=== PATIENT | female | born 1970 | race Caucasian/White ===

== ENCOUNTER 2021-12-13 21:15 | Emergency (ER) | payer OTHER ==
[2021-12-13] MEDS ORDERED: Acetaminophen/HYDROcodone 325-10 MG Tab PO ONE (21:16)
[2021-12-13] MEDS ORDERED: Sodium Chloride 0.9% 1,000 ML IV ONE (21:27)
[2021-12-13] MEDS ORDERED: Ondansetron 4 MG/2 ML SDV IVPUSH ONE (21:27)
[2021-12-13 21:59] LABS: ANION GAP 14.7 mEq/L (7-13); CHLORIDE,CL 106 mmol/L (98-107); SODIUM,NA 144 mmol/L (136-145)
[2021-12-13] MEDS ORDERED: Iopamidol 612 MG/ML 100 ML Bottle IVPUSH ONE (22:33)
[2021-12-13 22:36] VITALS: PULSE 62
[2021-12-13 23:48] VITALS: BP 122/78
[2021-12-14] MEDS ORDERED: Famotidine 20 MG/2 ML SDV IVPUSH ONE (00:38)
[2021-12-14] MEDS ORDERED: Acetaminophen/HYDROcodone 325-10 MG Tab ONE (00:49)
== END 2021-12-14 01:05 | disposition home or self-care (01) ==
LOC: DL.ED 21:15
DX: R10.11 Right upper quadrant pain (principal)
CPT/HCPCS: 36415; 74177; 80053; 81003; 82150; 83605; 83690; 85025; 85379; 87040; 93005; 93010; 96374; 96375; 99284; 99284-25; A9270-GY; J2405; J3490; J7030; Q9967

== ENCOUNTER 2024-04-25 06:01 | Day surgery (SDC) | payer OTHER ==
[2024-04-25] MEDS ORDERED: fentaNYL 100 MCG/2 ML SDV ONE (06:14)
[2024-04-25] MEDS ORDERED: Midazolam 1 MG/ML 2 ML SDV ONE (06:14)
[2024-04-25] MEDS: Dextrose 5%-0.45% NaCl 1,000 ML IV SCH (06:46)
[2024-04-25] MEDS: fentaNYL 100 MCG/2 ML SDV IV ONE ×4 (07:09→07:25)
[2024-04-25] MEDS: Midazolam 1 MG/ML 2 ML SDV IV ONE ×6 (07:10→07:19)
[2024-04-25] MEDS: Sodium Chloride 0.9% 1,000 ML IV SCH (07:45)
[2024-04-25 08:33] VITALS: BP 97/57; PULSE 50
== END 2024-04-25 09:22 | disposition home or self-care (01) ==
LOC: DL.ENDO 06:01
PROVIDERS: ATTEND Internal Medicine Gastroenterology
DX: Z12.11 Encounter for screening for malignant neoplasm of colon (principal); K57.30 Diverticulosis of large intestine without perforation or abscess without bleeding
CPT/HCPCS: 45378; J2250; J3010; J7030; J7799